=== PATIENT | male | born 1990 | race Caucasian/White ===

== ENCOUNTER 2019-09-01 17:31 | Emergency (ER) | payer BC ==
[~2019-09-01] VITALS: Ht 177.8 cm; Wt 90.7 kg
[2019-09-01] MEDS ORDERED: ZOLOFT50 MG PO (18:04)
[2019-09-01] MEDS ORDERED: ONDANSETRON ODT8 MG PO (19:13)
[2019-09-01] MEDS ORDERED: NORCO 7.5-3251 EACH PO (19:13)
== END 2019-09-01 19:44 | disposition short-term general hospital (02) ==
LOC: ED 17:31
DX: N20.1 Calculus of ureter (principal)
CPT/HCPCS: 74176; 80053; 81001; 83690; 85025; 96361; 96374; 96375; 99285-25; A9270; J1170; J1885; J2405; J7030